=== PATIENT | female | born 1945 | race Two or more races ===

== ENCOUNTER → 2017-11-17 | Outpatient (CLI) | payer MEDICARE, OTHER ==
[~2017-11-17] MED LIST: ALBU3IS INH; Amiodarone HCl200 MG PO; FLUT110OIA INH; FURO20 PO; LISI5 PO; XARELTO20 MG PO
[2017-11-18 18:26] LABS: Appearance, Urine Clear (Clear); Bilirubin, Urine Neg (Neg); Blood, Urine Neg (Neg); Color, Urine Yellow (P-Yellow); Glucose Qualitative, Urine Neg (Neg); Ketones, Urine Neg (Neg); Leukocyte Esterase, Urine Neg (Neg); Nitrite, Urine Neg (Neg); Protein, Urine Neg (Neg); Urobilinogen, Urine NORM (Normal)
== END | disposition home or self-care (01) ==
LOC: LAB 10:15
PROVIDERS: Nurse Practitioner Family
DX: Z13.9 Encounter for screening, unspecified (principal); I10 Essential (primary) hypertension
CPT/HCPCS: 81003

== ENCOUNTER 2019-06-22 07:30 | Inpatient (IN) | payer MEDICARE, OTHER ==
[~2019-06-22] VITALS: Ht 170.2 cm; Wt 114.0 kg
[~2019-06-22 07:30] MED LIST changes: +ALBU2.5V5 NEB; -ALBU3IS INH
[2019-06-22 09:14] LABS: Source, Urine Clean Catch
[2019-06-22 09:16] LABS: BASOPHILS ABSOLUTE AUTO 0.09 K/mm3 (0.00-0.23); BASOPHILS PERCENT AUTO 0 % (0-2); EOSINOPHILS PERCENT AUTO 0 % (0-6); Hematocrit 53.2 % (33.0-51.0); Hemoglobin 17.6 g/dL (11.5-16.0); IMMATURE GRAN ABSOLUTE AUTO 0.13 K/mm3 (0.00-0.10); IMMATURE GRAN PERCENT AUTO 1 % (0-1); LYMPHOCYTES ABSOLUTE AUTO 1.35 K/mm3 (0.84-5.20); LYMPHOCYTES PERCENT AUTO 6 % (21-46); MONOCYTES ABSOLUTE AUTO 1.23 K/mm3 (0.16-1.47); MONOCYTES PERCENT AUTO 5 % (4-13); Mean Corpuscular HGB 31.5 pg (26.0-34.0); Mean Corpuscular HGB Conc 33.1 g/dL (31.5-36.5); Mean Corpuscular Volume 95 fL (80-100); Mean Platelet Volume 10.2 fL (9.1-12.4); NEUTROPHILS ABSOLUTE AUTO 19.87 K/mm3 (1.96-9.15); NEUTROPHILS PERCENT AUTO 88 % (41-73); Platelet Count 208 K/mm3 (150-400); RDW Coefficient Variation 12.2 % (11.7-14.2); RDW Standard Deviation 43.4 fL (35.1-46.3); Red Blood Cell Count 5.58 M/mm3 (3.80-5.20); White Blood Cell Count 22.67 K/mm3 (4.00-11.30)
[2019-06-22 09:19] LABS: Bilirubin, Urine Neg (Neg); Blood, Urine 5+ (Neg); Glucose Qualitative, Urine Neg (Neg); Ketones, Urine 1+ (Neg); Leukocyte Esterase, Urine 3+ (Neg); Nitrite, Urine Pos (Neg); Protein, Urine 3+ (Neg); Specific Gravity, Urine 1.015 (1.003-1.022); Urobilinogen, Urine 1+ (Normal)
[2019-06-22 09:24] LABS: Appearance, Urine Turbid (Clear); Color, Urine Amber (P-Yellow)
[2019-06-22 09:26] LABS: Red Blood Cells, Urine TNTC /hpf (0-2); White Blood Cells, Urine 25-50 /hpf (0-5)
[2019-06-22 09:27] LABS: Bacteria Many /hpf; Squamous Epithelial Cells Rare /hpf (Few)
[2019-06-22 09:35] LABS: Albumin, Blood 3.6 g/dL (3.4-5.0); Albumin/Globulin Ratio 0.9 (0.8-1.8); Bilirubin, Total 0.6 mg/dL (0.1-1.0); Bun/Creatinine Ratio 9.3 (12.0-20.0); Calcium, Blood 8.9 mg/dL (8.5-10.1); Creatinine, Blood 1.08 mg/dL (0.40-1.00); Globulin, Blood 3.8 g/dL (2.2-4.0); Potassium, Blood 4.7 mmol/L (3.5-5.5); Total Protein, Blood 7.4 g/dL (6.4-8.2)
[2019-06-22] MEDS ORDERED: DILT180 PO (12:29)
[2019-06-22 16:12] LABS: Bun/Creatinine Ratio 10.6 (12.0-20.0); Calcium, Blood 8.4 mg/dL (8.5-10.1); Creatinine, Blood 1.23 mg/dL (0.40-1.00); Potassium, Blood 4.7 mmol/L (3.5-5.5)
--- NOTE | 2019-06-22 18:30 | NUR ---
CALLED AND INFORMED DR SAM OF AFIB IN 120S AND OF FAMILY MEMBER'S MENTION OF HER HEAVY ETOH CONSUMPTION. HE ORDERED CIWAH ASSESSMENTS
--- NOTE | 2019-06-22 19:07 | NUR ---
SHIFT SUMMARY MAMI ARRIVED FROM ER AROUND 3PM. DENIES PAIN OR NAUSEA. TELE SHOWING AFIB IN 115-120S, AWARE. LACTIC ACID CAME DOWN TO 2.5. SON STATES SHE DRINKS QUITE A BIT MORE THAN THE 1 GLASS PER DAY OF WINE, CIWAH SCORING ADDED PER DR SAM. NEW PIV STARTED, Q4VS, STRICT I/O. SBA TO BR. LOTS OF FAMILY VISITED. CALL LIGHT IN REACH, WCTM
[2019-06-23 04:51] LABS: BASOPHILS ABSOLUTE AUTO 0.06 K/mm3 (0.00-0.23); BASOPHILS PERCENT AUTO 1 % (0-2); EOSINOPHILS PERCENT AUTO 0 % (0-6); Hematocrit 49.3 % (33.0-51.0); Hemoglobin 15.8 g/dL (11.5-16.0); IMMATURE GRAN ABSOLUTE AUTO 0.03 K/mm3 (0.00-0.10); IMMATURE GRAN PERCENT AUTO 0 % (0-1); LYMPHOCYTES ABSOLUTE AUTO 0.61 K/mm3 (0.84-5.20); LYMPHOCYTES PERCENT AUTO 5 % (21-46); MONOCYTES ABSOLUTE AUTO 0.39 K/mm3 (0.16-1.47); MONOCYTES PERCENT AUTO 3 % (4-13); Mean Corpuscular Volume 97 fL (80-100); Mean Platelet Volume 10.2 fL (9.1-12.4); NEUTROPHILS ABSOLUTE AUTO 12.19 K/mm3 (1.96-9.15); NEUTROPHILS PERCENT AUTO 92 % (41-73); Platelet Count 199 K/mm3 (150-400); RDW Coefficient Variation 12.6 % (11.7-14.2); RDW Standard Deviation 45.4 fL (35.1-46.3); Red Blood Cell Count 5.09 M/mm3 (3.80-5.20); White Blood Cell Count 13.28 K/mm3 (4.00-11.30)
[2019-06-23 05:14] LABS: Bun/Creatinine Ratio 12.7 (12.0-20.0); Calcium, Blood 8.3 mg/dL (8.5-10.1); Creatinine, Blood 1.18 mg/dL (0.40-1.00); Potassium, Blood 4.8 mmol/L (3.5-5.5)
--- NOTE | 2019-06-23 05:59 | NUR ---
SHIFT SUMMARY: 73 Y/O FEMALE ADMITTED FOR PYLEO, SEVERE SEPSIS. SHE HAS BEEN RESTING MOST OF THE NIGHT WITH TELEMETRY IN PLACE. HER HEART RATE HAS BEEN AVERAGING 130'S AT RESTING. WHEN SHE GETS UP TO GO TO THE BATHROOM HER HEART RATE WILL CLIMB UP THE HIGHEST BEING 180'S. SHE HAD ONE EPISODE OF SHARP STABBING PAIN IN HER ABDOMEN CAUSING HER HEART RATE TO GO 160'S NON AT WHICH SHE SUSTAINED VERY LONG. MD WAS NOTIFIED OF RESTING HR OF 130'S BOLUS WAS GIVEN, AND CARDIZEM WAS ORDERED BY DR. SAM. THIS BROUGHT HER HEART RATE DOWN TO 114 FOR A WHILE THEN IT WENT BACK UP. SHE DENIED ANY OTHER COMPLAINS OR CONCERNS. HER VITALS OTHER THEN HER HEART RATE HAD REMAINED WNL. SHE DENIED PAIN OTHER THEN THAT ONE EPISODE. EARLY THIS AM HER HEART RATE SUSTAINED IN THE 140'S TO 150'S FOR SEVERAL HOURS. NOTIFIED DR. DRAKE, NO NEW ORDERS WERE TO NOTE, JUST CONTINUE TO MONITOR THE PATIENT. PATIENT DENIED ANY CHEST PAIN ONLY DYSPNEA UPON EXERTION. WILL REPORT TO DAY SHIFT RN.
--- NOTE | 2019-06-23 06:10 | NUR ---
PATIENT RESTING IN ROOM. MOLD PREPARER CALLED AGAIN REPORTING HEART RATE IN THE 150'S AND SUSTANING, SPOKE TO CHARGE NURSE REGARDING SITUATION SEVERAL TIMES TONIGHT AND THAT MD WAS NOTIFIED WITH NO CHANGES OR ORDERS. INFORMED EVEN SPOKE TO MD IN REGARDS TO PCU STATUS BUT HE STATED TO KEEP HER MEDICAL FLOOR. WILL INFORM DAY SHIFT RN TO SEE IF THEY CAN GET SOMETHING GOING FOR HER. SHE IS SOB AND WHEEZES ARE NOTED. THIS WAS ALSO TOLD TO DR. WALLER.
--- NOTE | 2019-06-23 07:25 | NUR ---
PCU DOCUMENT REVIEW ATTORNEY CALLED TO SAY PT.'S HEART RATE WAS IN THE 150'S BOUNCING INTO THE 170'S UPON ENTERING ROOM PT WAS SOB AND LETHARGIC, DENIED PAIN RR WAS AT 40 AND OXYGEN LEVELS DROPPING INTO THE UPPER 80'S. APPLIED 2L/NC. PT. DIAPHORETIC. DR. SAM NOTIFIED AND HE ORDERED FAST ACTING CARDIZEM WHICH WAS GIVEN AT 0750 FOLOWED BY SCHEDULED REGULAR CARDIZEM AT 0801. PT. STILL IN AFIB AND SUSTAINING IN THE 170'S AFTER AN HOUR THE HR STARTED DROPPING INTO THE 150'S. PT. VERY LETHARGIC AT THIS TIME.
--- NOTE | 2019-06-23 08:45 | NUR ---
CLIENT SERVICES ASSOCIATEHAMZAH PEACOCK PLACED A NEW IV IN OT'S RIGHT FA. I DISCONTINUED LEFT AC IV R/T INFILTRATION. PT'S ARM GROSSLY ENDEMATOUS WITH WATER BLISTERS AT THE AC AREA. WRAPPED AC WITH ZOFIA GREER UNDER IT.
--- NOTE | 2019-06-23 14:54 | NUR ---
Patient is sitting up in bed and alert with son Len maciel. Patient openly shares about her spiritual journey, her family and her medical challenges. Pateint admits that she is significantly better than when she came in and is thankful for that. Patient tells me about her spiritual compllications. I listen empathically and provide pastoral mortgage loan counselor and prayer. Patient responded well and showed signs of restored veronique. Patient and son voiced appreciation for the visit.
--- NOTE | 2019-06-23 18:44 | NUR ---
PT. LYING QUIETLY, DENIES PAIN OR NAUSEA, SOB NOTED AND INSP/EXP WHEEZING, CALLED R.T. BUT THEY SAID IT WAS TO EARLY FOR ANOTHER BREATHING TREATMENT. PT. VERY CALM AND QUIET. EXPLAINED TO SOON FOR BREATHING TX.
--- NOTE | 2019-06-24 03:39 | NUR ---
SHIFT SUMMARY: 73 YEAR OLD FEMALE ADMITTED WITH PYLEO AND SEVERE SEPSIS. HAS HAD A BETTER NIGHT. SHE HAS SLEPT WELL THROUGHOUT THE NIGHT SO FAR. HER HEART RATE HAS AVERAGED 110-120 THE ENTIRE TIME. SHE HAS DENIED ANY CARDIAC SYMPTOMS. WHEEZES HAVE BEEN MANAGED WITH BREATHING TREATMENTS. SOB HAS IMPROVED AND ONLY EXACERBATES WHEN SHE GETS UP AND MOVES. SHE DENIES ANY OTHER CHANGES OR CONCERNS SO FAR THIS SHIFT. REPORT WAS GIVEN TO NORY GOODSON.
[2019-06-24 04:37] LABS: BASOPHILS ABSOLUTE AUTO 0.12 K/mm3 (0.00-0.23); BASOPHILS PERCENT AUTO 1 % (0-2); Hematocrit 41.1 % (33.0-51.0); Hemoglobin 13.4 g/dL (11.5-16.0); LYMPHOCYTES ABSOLUTE AUTO 1.04 K/mm3 (0.84-5.20); LYMPHOCYTES PERCENT AUTO 6 % (21-46); MONOCYTES ABSOLUTE AUTO 0.52 K/mm3 (0.16-1.47); MONOCYTES PERCENT AUTO 3 % (4-13); Mean Corpuscular HGB 31.8 pg (26.0-34.0); Mean Corpuscular HGB Conc 32.6 g/dL (31.5-36.5); Mean Corpuscular Volume 98 fL (80-100); Mean Platelet Volume 10.3 fL (9.1-12.4); Platelet Count 162 K/mm3 (150-400); RDW Coefficient Variation 12.8 % (11.7-14.2); RDW Standard Deviation 45.1 fL (35.1-46.3); Red Blood Cell Count 4.21 M/mm3 (3.80-5.20); White Blood Cell Count 16.32 K/mm3 (4.00-11.30)
[2019-06-24 04:39] LABS: EOSINOPHILS ABSOLUTE AUTO 0.01 K/mm3 (0.00-0.68); EOSINOPHILS PERCENT AUTO 0 % (0-6); IMMATURE GRAN ABSOLUTE AUTO 0.16 K/mm3 (0.00-0.10); IMMATURE GRAN PERCENT AUTO 1 % (0-1); NEUTROPHILS ABSOLUTE AUTO 14.47 K/mm3 (1.96-9.15); NEUTROPHILS PERCENT AUTO 89 % (41-73)
[2019-06-24 04:56] LABS: Bun/Creatinine Ratio 16.5 (12.0-20.0); Creatinine, Blood 1.09 mg/dL (0.40-1.00); Potassium, Blood 4.3 mmol/L (3.5-5.5)
--- NOTE | 2019-06-24 06:21 | NUR ---
Shift Summary Patient reported no pain or discomfort on assessment. No SOB or chest pain reported, but she did report a cough. Expiratory wheezes are heard on auscultation throughout lungs.
--- NOTE | 2019-06-24 19:05 | NUR ---
PT. LYING QUIETLY, DENIES PAIN AND NAUSEA AT THIS TIME. PT. DENIES PAIN SINCE I GAVE HER PAIN MEDS THIS MORNING FOR LOWER ABDOMINAL PAIN. PT. APPETITE VERY GOOD TODAY.
--- NOTE | 2019-06-25 04:17 | NUR ---
PCU COVERING MACHINE TENDER CALLED REPORTING PATIENT RUNNING A 6 BEAT VTACH. AWAKENED THE PATIENT WHO WAS SLEEPING AT THAT TIME, STATES SHE IS FEELING FINE, ASYMPTOMATIC. 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 CHARGE NURSE INFORMED WILL CONTINUE TO MONITOR HER.
[2019-06-25 05:00] LABS: BASOPHILS ABSOLUTE AUTO 0.07 K/mm3 (0.00-0.23); BASOPHILS PERCENT AUTO 1 % (0-2); EOSINOPHILS ABSOLUTE AUTO 0.09 K/mm3 (0.00-0.68); EOSINOPHILS PERCENT AUTO 1 % (0-6); Hematocrit 39.8 % (33.0-51.0); Hemoglobin 12.7 g/dL (11.5-16.0); IMMATURE GRAN ABSOLUTE AUTO 0.08 K/mm3 (0.00-0.10); IMMATURE GRAN PERCENT AUTO 1 % (0-1); LYMPHOCYTES PERCENT AUTO 8 % (21-46); MONOCYTES ABSOLUTE AUTO 0.72 K/mm3 (0.16-1.47); MONOCYTES PERCENT AUTO 5 % (4-13); Mean Corpuscular HGB 31.9 pg (26.0-34.0); Mean Corpuscular HGB Conc 31.9 g/dL (31.5-36.5); Mean Corpuscular Volume 100 fL (80-100); Mean Platelet Volume 10.7 fL (9.1-12.4); NEUTROPHILS PERCENT AUTO 85 % (41-73); Platelet Count 166 K/mm3 (150-400); RDW Coefficient Variation 12.7 % (11.7-14.2); Red Blood Cell Count 3.98 M/mm3 (3.80-5.20); White Blood Cell Count 14.66 K/mm3 (4.00-11.30)
[2019-06-25 05:32] LABS: Anion Gap 4 mmol/L (6-16); Blood Urea Nitrogen 17 mg/dL (8-24); Bun/Creatinine Ratio 19.6 (12.0-20.0); CO2, Blood 27 mmol/L (21-32); Calcium, Blood 8.2 mg/dL (8.5-10.1); Chloride, Blood 104 mmol/L (98-108); Creatinine, Blood 0.87 mg/dL (0.40-1.00); Glomerular Filtration Rate >60 (60-); Glucose, Blood 103 mg/dL (70-99); Potassium, Blood 4.2 mmol/L (3.5-5.5); Sodium, Blood 135 mmol/L (136-145)
--- NOTE | 2019-06-25 05:53 | NUR ---
SHIFT SUMMARY: MAMI HAD A GOOD NIGHT TONIGHT. HEART RATE REMAINED IN THE 110'S WITH OCCATIONAL 120-130 WHEN SHE GOT UP TO BSC. SHE DID HAVE A SHORT RUN OF 6 BEATS OF V-TACH. SHE WAS ASLEEPING DURING IT. AWAKENED HER UP AND DID A COMPLETE CARIDAC ASSESSMENT WHICH WAS BENIGN, SHE WAS ASYMPTOMATIC. TELE REMAINED IN PLACED. SHE DENIED ANY NEEDS WILL REPORT TO DAY SHIFT RN.
[2019-06-25 14:34] LABS: Source, Urine Clean Catch
[2019-06-25 14:40] LABS: Appearance, Urine Cloudy (Clear); Bilirubin, Urine Neg (Neg); Blood, Urine 5+ (Neg); Color, Urine Amber (P-Yellow); Glucose Qualitative, Urine Neg (Neg); Ketones, Urine Neg (Neg); Leukocyte Esterase, Urine 3+ (Neg); Nitrite, Urine Neg (Neg); Protein, Urine 3+ (Neg); Urobilinogen, Urine NORM (Normal); pH, Urine 6.5 (5.0-8.0)
[2019-06-25 14:50] LABS: Red Blood Cells, Urine 50-100 /hpf (0-2); White Blood Cells, Urine 25-50 /hpf (0-5)
[2019-06-25 14:51] LABS: Squamous Epithelial Cells Mod /hpf (Few)
[2019-06-25 14:52] LABS: Bacteria Many /hpf
--- NOTE | 2019-06-25 18:24 | NUR ---
PT. UP IN CHAIR FOR DINNER. ATE 100% OF MEAL. SECOND UA SENT TODAY. P.T./O.T./R.T. HAVE ALL SEEN PT. TODAY FOR DISCHARGE PLANNING TOMORROW. AMBULATED WITH FWW IN [place] WITH P.T. TOLERATED WELL. NEW DRESSING PUT ON LEFT AC WHERE IV INFILTRATION CAUSED LARGE WATER BLISTERS THAT POPPED. PT. HR ELEVATED INTO THE 130'S TODAY BUT ARE NOW BACK INTO THE 1 TEENS AFTER ER CARDIZEM AND IMMEDIATE RELEASE CARDIZEM. PT REPORTED LEFT LOWER ABD PAIN EARLIER TODAY AND MARTHA BARBER. HAS DENIED PAIN EVER SINCE. HOME O2 EVAL TO BE DONE BEFORE DISCHARGE.
--- NOTE | 2019-06-26 04:32 | NUR ---
SHIFT SUMMARY PATIENT ALERT AND ORIENTED THIS SHIFT. ABLE TO WALK TO THE BATHROOM WITH MINIMAL DIFFICULTY. CURRENTLY ON 2 LITERS OF OXYGEN VIA NASAL CANULA. IV SITE IN RIGHT FOREARM PATENT AND FLUSHED. PATIENT ON TELEMITRY, RATE AND RHYTHM WAS AFIV AT 124. PATIENT STAYED IN BED ALL SHIFT AND RESTED. VEWS SCORE AT 2357 WAS 4, VITALS REASSESSED AT 0224 RESULTING IN A SCORE OF 3, VITALS WNL AT 0351. WILL CONTINUE TO MONITOR. BED IN LOWEST POSITION WITH WHEELS LOCKED. CALL LIGHT AND BED SIDE TABLE WITHIN REACH. REPORT GIVEN TO ONCOMING RN.
[2019-06-26 05:05] LABS: BASOPHILS ABSOLUTE AUTO 0.05 K/mm3 (0.00-0.23); BASOPHILS PERCENT AUTO 1 % (0-2); EOSINOPHILS ABSOLUTE AUTO 0.12 K/mm3 (0.00-0.68); EOSINOPHILS PERCENT AUTO 1 % (0-6); Hematocrit 39.1 % (33.0-51.0); Hemoglobin 12.6 g/dL (11.5-16.0); IMMATURE GRAN ABSOLUTE AUTO 0.06 K/mm3 (0.00-0.10); IMMATURE GRAN PERCENT AUTO 1 % (0-1); LYMPHOCYTES ABSOLUTE AUTO 1.28 K/mm3 (0.84-5.20); LYMPHOCYTES PERCENT AUTO 12 % (21-46); MONOCYTES ABSOLUTE AUTO 0.97 K/mm3 (0.16-1.47); MONOCYTES PERCENT AUTO 9 % (4-13); Mean Corpuscular HGB 31.4 pg (26.0-34.0); Mean Corpuscular HGB Conc 32.2 g/dL (31.5-36.5); Mean Corpuscular Volume 98 fL (80-100); Mean Platelet Volume 10.4 fL (9.1-12.4); NEUTROPHILS ABSOLUTE AUTO 8.25 K/mm3 (1.96-9.15); NEUTROPHILS PERCENT AUTO 77 % (41-73); Platelet Count 201 K/mm3 (150-400); RDW Coefficient Variation 12.5 % (11.7-14.2); RDW Standard Deviation 45.5 fL (35.1-46.3); Red Blood Cell Count 4.01 M/mm3 (3.80-5.20); White Blood Cell Count 10.73 K/mm3 (4.00-11.30)
[2019-06-26 05:30] LABS: Anion Gap 5 mmol/L (6-16); Blood Urea Nitrogen 15 mg/dL (8-24); Bun/Creatinine Ratio 17.7 (12.0-20.0); CO2, Blood 28 mmol/L (21-32); Calcium, Blood 8.5 mg/dL (8.5-10.1); Chloride, Blood 101 mmol/L (98-108); Creatinine, Blood 0.85 mg/dL (0.40-1.00); Glomerular Filtration Rate >60 (60-); Glucose, Blood 115 mg/dL (70-99); Potassium, Blood 3.5 mmol/L (3.5-5.5); Sodium, Blood 134 mmol/L (136-145)
[2019-06-26] MEDS ORDERED: ACET325 PO (11:59)
[2019-06-26] MEDS ORDERED: HYDCHL25 PO (11:59)
[2019-06-26] MEDS ORDERED: ALBU3IS INH (12:00)
--- NOTE | 2019-06-26 17:02 | NUR ---
DISCHARGE SUMMARY PATIENT PLEASANT. NO ACUTE CONCERNS. DISCHARGED WITH FAMILY. [facility] [facility]
== END 2019-06-26 12:30 | disposition home or self-care (01) | DRG 872 ==
LOC: ER 07:30 → MEDS 14:21
PROVIDERS: Physician Assistant; ADMIT Internal Medicine Endocrinology, Diabetes & Metabolism
DX: A41.51 Sepsis due to Escherichia coli [E. coli] (principal); I48.20 Chronic atrial fibrillation, unspecified; E87.2 Acidosis; J44.1 Chronic obstructive pulmonary disease with (acute) exacerbation; N13.6 Pyonephrosis; E66.01 Morbid (severe) obesity due to excess calories; F17.200 Nicotine dependence, unspecified, uncomplicated; R91.8 Other nonspecific abnormal finding of lung field; R65.20 Severe sepsis without septic shock; I50.9 Heart failure, unspecified; I11.0 Hypertensive heart disease with heart failure; Z68.39 Body mass index [BMI] 39.0-39.9, adult
CPT/HCPCS: 36415; 74176; 80048; 80053; 81001; 83605; 83690; 85025; 87040; 87077; 87086; 87186; 94640; 94760; 94761; 96365; 96366; 96375; 97162; 97165; 97530; 97535; 99285-25; J0696; J1885; J2270; J2405; J3480; J7040; J7120; P9612

== ENCOUNTER 2019-09-02 02:19 | Emergency (ER) | payer MEDICARE, OTHER ==
[~2019-09-02] VITALS: Ht 170.2 cm; Wt 117.9 kg
[~2019-09-02 02:19] MED LIST changes: +ACET325 PO; +ALBU3IS INH; +DILT180 PO; +HYDCHL25 PO
[2019-09-02 03:16] LABS: BASOPHILS ABSOLUTE AUTO 0.06 K/mm3 (0.00-0.23); BASOPHILS PERCENT AUTO 1 % (0-2); EOSINOPHILS ABSOLUTE AUTO 0.21 K/mm3 (0.00-0.68); EOSINOPHILS PERCENT AUTO 3 % (0-6); Hematocrit 44.9 % (33.0-51.0); Hemoglobin 14.4 g/dL (11.5-16.0); IMMATURE GRAN ABSOLUTE AUTO 0.01 K/mm3 (0.00-0.10); IMMATURE GRAN PERCENT AUTO 0 % (0-1); LYMPHOCYTES ABSOLUTE AUTO 2.94 K/mm3 (0.84-5.20); LYMPHOCYTES PERCENT AUTO 35 % (21-46); MONOCYTES ABSOLUTE AUTO 0.72 K/mm3 (0.16-1.47); MONOCYTES PERCENT AUTO 9 % (4-13); Mean Corpuscular HGB Conc 32.1 g/dL (31.5-36.5); Mean Corpuscular Volume 94 fL (80-100); Mean Platelet Volume 9.6 fL (9.1-12.4); NEUTROPHILS ABSOLUTE AUTO 4.42 K/mm3 (1.96-9.15); NEUTROPHILS PERCENT AUTO 53 % (41-73); Platelet Count 262 K/mm3 (150-400); RDW Standard Deviation 41.4 fL (35.1-46.3); White Blood Cell Count 8.36 K/mm3 (4.00-11.30)
[2019-09-02 03:36] LABS: Alanine Aminotransfer (ALT/SGP 20 U/L (12-78); Albumin, Blood 3.1 g/dL (3.4-5.0); Albumin/Globulin Ratio 0.8 (0.8-1.8); Alk Phos 68 U/L (50-136); Anion Gap 13 mmol/L (6-16); Aspartate Aminotrans (AST/SGOT 19 U/L (12-37); Bilirubin, Total 0.3 mg/dL (0.1-1.0); Blood Urea Nitrogen 9 mg/dL (8-24); Bun/Creatinine Ratio 10.5 (12.0-20.0); CO2, Blood 23 mmol/L (21-32); Calcium, Blood 8.5 mg/dL (8.5-10.1); Chloride, Blood 108 mmol/L (98-108); Creatinine, Blood 0.86 mg/dL (0.40-1.00); Ethanol (Alcohol), Blood, Med 138 mg/dL; Globulin, Blood 3.7 g/dL (2.2-4.0); Glomerular Filtration Rate >60 (60-); Glucose, Blood 99 mg/dL (70-99); Potassium, Blood 3.6 mmol/L (3.5-5.5); Salicylate 2.6 mg/dL (2.8-20.0); Sodium, Blood 144 mmol/L (136-145); Total Protein, Blood 6.8 g/dL (6.4-8.2); Troponin I <0.015 ng/mL (0.000-0.040)
[2019-09-02 04:00] LABS: Acetaminophen, Random <2.0 ug/mL (10.0-30.0)
== END 2019-09-02 06:05 | disposition home or self-care (01) ==
LOC: ER 02:19
PROVIDERS: Emergency Medicine
DX: F10.129 Alcohol abuse with intoxication, unspecified (principal); Y90.6 Blood alcohol level of 120-199 mg/100 ml; R41.82 Altered mental status, unspecified; Z87.442 Personal history of urinary calculi; Z88.8 Allergy status to other drugs, medicaments and biological substances; Z87.891 Personal history of nicotine dependence
CPT/HCPCS: 36415; 70450; 71046; 80053; 83690; 84484; 85025; 93005; 93010; 96360; 96361; 99285-25; G0480; J7030

== ENCOUNTER 2022-12-21 16:54 | Emergency (ER) | payer MEDICARE, OTHER ==
[~2022-12-21] VITALS: Ht 175.3 cm; Wt 113.4 kg
[2022-12-21 18:40] LABS: Source, Urine Clean Catch
[2022-12-21 18:44] LABS: Appearance, Urine Hazy (Clear); Bilirubin, Urine Neg (Neg); Blood, Urine 1+ (Neg); Color, Urine Yellow (P-Yellow); Glucose Qualitative, Urine Neg (Neg); Ketones, Urine Neg (Neg); Leukocyte Esterase, Urine Neg (Neg); Nitrite, Urine Neg (Neg); Protein, Urine 2+ (Neg); Specific Gravity, Urine 1.015 (1.003-1.022); Urobilinogen, Urine NORM (Normal)
[2022-12-21 18:57] LABS: Bacteria Many /hpf; Red Blood Cells, Urine 0-2 /hpf (0-2); Squamous Epithelial Cells Few /hpf (Few); White Blood Cells, Urine 0-2 /hpf (0-5)
[2022-12-21 19:20] LABS: BASOPHILS ABSOLUTE AUTO 0.04 K/mm3 (0.00-0.23); BASOPHILS PERCENT AUTO 0 % (0-2); EOSINOPHILS PERCENT AUTO 0 % (0-6); Hematocrit 45.3 % (33.0-51.0); Hemoglobin 14.9 g/dL (11.5-16.0); IMMATURE GRAN ABSOLUTE AUTO 0.05 K/mm3 (0.00-0.10); IMMATURE GRAN PERCENT AUTO 0 % (0-1); LYMPHOCYTES ABSOLUTE AUTO 2.22 K/mm3 (0.84-5.20); LYMPHOCYTES PERCENT AUTO 16 % (21-46); MONOCYTES ABSOLUTE AUTO 0.88 K/mm3 (0.16-1.47); MONOCYTES PERCENT AUTO 6 % (4-13); Mean Corpuscular HGB 28.8 pg (26.0-34.0); Mean Corpuscular HGB Conc 32.9 g/dL (31.5-36.5); Mean Corpuscular Volume 88 fL (80-100); Mean Platelet Volume 10.4 fL (9.1-12.4); NEUTROPHILS ABSOLUTE AUTO 10.81 K/mm3 (1.96-9.15); NEUTROPHILS PERCENT AUTO 77 % (41-73); Platelet Count 224 K/mm3 (150-400); RDW Coefficient Variation 13.1 % (11.7-14.2); RDW Standard Deviation 42.4 fL (35.1-46.3); Red Blood Cell Count 5.17 M/mm3 (3.80-5.20)
[2022-12-21 19:41] LABS: Alanine Aminotransfer (ALT/SGP 20 U/L (12-78); Albumin, Blood 3.6 g/dL (3.4-5.0); Albumin/Globulin Ratio 0.9 (0.8-1.8); Alk Phos 90 U/L (50-136); Anion Gap Unable to Calculate mmol/L (6-16); Aspartate Aminotrans (AST/SGOT 22 U/L (12-37); Bilirubin, Total 0.6 mg/dL (0.1-1.0); Blood Urea Nitrogen 15 mg/dL (8-24); Bun/Creatinine Ratio 16.1 (12.0-20.0); CO2, Blood 29 mmol/L (21-32); Calcium, Blood 9.1 mg/dL (8.5-10.1); Chloride, Blood 111 mmol/L (98-108); Creatinine, Blood 0.93 mg/dL (0.40-1.00); Glomerular Filtration Rate 64 (60-); Glucose, Blood 116 mg/dL (70-99); Sodium, Blood 138 mmol/L (136-145); Total Protein, Blood 7.6 g/dL (6.4-8.2)
[2022-12-21 21:49] VITALS: BP 129/116
== END 2022-12-21 21:50 | disposition home or self-care (01) ==
LOC: ER 16:54
PROVIDERS: Physician Assistant
DX: R55 Syncope and collapse (principal); I48.20 Chronic atrial fibrillation, unspecified; Z88.8 Allergy status to other drugs, medicaments and biological substances; Z79.899 Other long term (current) drug therapy; J44.9 Chronic obstructive pulmonary disease, unspecified; I10 Essential (primary) hypertension; F17.200 Nicotine dependence, unspecified, uncomplicated
CPT/HCPCS: 36415; 71046; 80053; 81001; 84484; 85025; 87086; 93005; 93010; 99284-25

== ENCOUNTER → 2024-08-23 | Outpatient (CLI) | payer MEDICARE, OTHER ==
[2024-08-23 15:38] LABS: BASOPHILS ABSOLUTE AUTO 0.03 K/mm3 (0.00-0.23); BASOPHILS PERCENT AUTO 0 % (0-2); EOSINOPHILS ABSOLUTE AUTO 0.05 K/mm3 (0.00-0.68); EOSINOPHILS PERCENT AUTO 1 % (0-6); Hematocrit 48.4 % (33.0-51.0); Hemoglobin 15.7 g/dL (11.5-16.0); IMMATURE GRAN ABSOLUTE AUTO 0.02 K/mm3 (0.00-0.10); IMMATURE GRAN PERCENT AUTO 0 % (0-1); LYMPHOCYTES ABSOLUTE AUTO 2.86 K/mm3 (0.84-5.20); LYMPHOCYTES PERCENT AUTO 28 % (21-46); MONOCYTES ABSOLUTE AUTO 0.76 K/mm3 (0.16-1.47); MONOCYTES PERCENT AUTO 7 % (4-13); Mean Corpuscular HGB 29.2 pg (26.0-34.0); Mean Corpuscular HGB Conc 32.4 g/dL (31.5-36.5); Mean Corpuscular Volume 90 fL (80-100); Mean Platelet Volume 9.8 fL (9.1-12.4); NEUTROPHILS ABSOLUTE AUTO 6.59 K/mm3 (1.96-9.15); NEUTROPHILS PERCENT AUTO 64 % (41-73); Platelet Count 217 K/mm3 (150-400); RDW Coefficient Variation 13.2 % (11.7-14.2); RDW Standard Deviation 42.6 fL (35.1-46.3); Red Blood Cell Count 5.37 M/mm3 (3.80-5.20); White Blood Cell Count 10.31 K/mm3 (4.00-11.30)
[2024-08-23 15:48] LABS: Albumin, Blood 3.5 g/dL (3.4-5.0); Albumin/Globulin Ratio 0.9 (0.8-1.8); Bilirubin, Total 0.9 mg/dL (0.1-1.0); Bun/Creatinine Ratio 15.9 (12.0-20.0); Calcium, Blood 8.2 mg/dL (8.5-10.1); Creatinine, Blood 1.26 mg/dL (0.40-1.00); Globulin, Blood 3.7 g/dL (2.2-4.0); Potassium, Blood 3.9 mmol/L (3.5-5.5); Total Protein, Blood 7.2 g/dL (6.4-8.2)
== END | disposition home or self-care (01) ==
LOC: LAB SHORT 15:33 → LAB 15:33
PROVIDERS: Physician Assistant
DX: R10.84 Generalized abdominal pain (principal)
CPT/HCPCS: 80053; 85025

== ENCOUNTER → 2024-08-27 | Outpatient (CLI) | payer MEDICARE, OTHER | LOC: LAB 12:30 → LAB SHORT 12:30 | DX: R10.9 Unspecified abdominal pain (principal) | CPT/HCPCS: 87086 ==